=== PATIENT | female | born 1935 | race Caucasian/White ===

== ENCOUNTER → 2021-05-07 05:00 | Outpatient (REF) | payer OTHER, SELFPAY ==
[2021-05-07 09:36] LABS: BNP,B-Type NATRIURETIC PEPTIDE 56.2 pg/mL (0-100)
== END ==
LOC: OLS.SANC 05:00
PROVIDERS: Visit Provider Internal Medicine
DX: N39.0 Urinary tract infection, site not specified (principal); I10 Essential (primary) hypertension; I67.9 Cerebrovascular disease, unspecified; F60.0 Paranoid personality disorder; R44.0 Auditory hallucinations; Z86.711 Personal history of pulmonary embolism
CPT/HCPCS: 36415; 83880

== ENCOUNTER → 2021-05-08 09:07 | Outpatient (REF) | payer OTHER, SELFPAY ==
[2021-05-08 09:07] LABS: Bacteria 0 SEEN /hpf (None Seen); Mucous, Urine 0 SEEN /hpf (<or=2+); Red Blood Cells-Urine 0 SEEN /hpf (0-5); Squamous Epithelial Cells - UA 0 SEEN /hpf (5-10)
[2021-05-08 10:06] LABS: Color, Urine Yellow (Yellow); Glucose, Dipstick Normal (Normal); Ketone-Dipstick Negative (Negative); Leukocyte Esterase-Dipstick 500 /ul (Negative); Nitrite-Dipstick Negative (Negative); Occult Blood-Urine Negative /ul (Negative); Protein-Dipstick Negative (Negative); Specific Gravity, Urine 1.015 (1.002-1.030); Urine Bilirubin Dipstick Negative (Negative); Urine Clarity Clear (Clear); Urine Urobilinogen Normal (Normal)
[2021-05-08 10:15] LABS: White Blood Cells 0-5 SEEN /hpf (0-5)
== END ==
LOC: OLS.SANC 09:07
PROVIDERS: Visit Provider Internal Medicine
DX: R41.82 Altered mental status, unspecified (principal)
CPT/HCPCS: 81001; 87077; 87086; 87088; 87186

== ENCOUNTER → 2021-06-15 07:10 | Outpatient (REF) | payer MEDICARE, MEDICAID, SELFPAY ==
[2021-06-15 09:21] LABS: Thyroid Stim Hormone (TSH) 3.84 uIU/mL (0.358-3.74)
== END ==
LOC: OLS.SANC 07:10
PROVIDERS: Visit Provider Internal Medicine
DX: I10 Essential (primary) hypertension (principal)
CPT/HCPCS: 36415; 84443

== ENCOUNTER → 2021-09-08 04:00 | Outpatient (REF) | payer MEDICARE, SELFPAY ==
[2021-09-08 07:44] LABS: Cholesterol 161 mg/dL (200); High Density Lipoprotein 68 mg/dL; Triglycerides 203 mg/dL; Very Low Density Lipoprotein 41 mg/dL (5-40)
== END ==
LOC: OLS.SANC 04:00
DX: T88.7XXA Unspecified adverse effect of drug or medicament, initial encounter (principal)
CPT/HCPCS: 36415; 80061

== ENCOUNTER → 2021-09-15 07:10 | Outpatient (REF) | payer MEDICARE, MEDICAID, SELFPAY | LOC: OLS.SANC 07:10 | PROVIDERS: Visit Provider Internal Medicine | DX: I10 Essential (primary) hypertension (principal); E78.5 Hyperlipidemia, unspecified; E03.9 Hypothyroidism, unspecified; I67.9 Cerebrovascular disease, unspecified; Z86.711 Personal history of pulmonary embolism | CPT/HCPCS: 36415; 84443 ==

== ENCOUNTER → 2021-10-08 05:00 | Outpatient (REF) | payer MEDICARE, MEDICAID, SELFPAY ==
[2021-10-08 08:48] LABS: Anion Gap 8 (5-15); BUN 51 mg/dL (7-18); BUN/Creat Ratio 43.6 RATIO (10-20); Calcium,Total 8.6 mg/dL (8.5-10.1); Chloride 100 mmol/L (98-107); Creatinine, Serum 1.17 mg/dL (0.55-1.02); EST Glomerular Filtration Rate 47 mL/min (>60); Est Glom Filt Rate - Afr Amer 56 mL/min (>60); Glucose 138 mg/dL (74-106); Potassium 3.6 mmol/L (3.5-5.1); Sodium Level 139 mmol/L (136-145)
== END ==
LOC: OLS.SANC 05:00
PROVIDERS: Visit Provider Internal Medicine
DX: F03.90 Unspecified dementia, unspecified severity, without behavioral disturbance, psychotic disturbance, mood disturbance, and anxiety (principal); R60.9 Edema, unspecified
CPT/HCPCS: 36415; 80048